=== PATIENT | male | born 1960 ===

== ENCOUNTER 2018-11-19 12:36 | Outpatient (CLI) | payer BC ==
--- NOTE | 2018-11-19 14:03 | RAD ---
TWO VIEW CHEST: HISTORY: Dyspnea. FINDINGS: The lungs appear clear. No infiltrate or vascular congestion. Heart size is normal. Metallic plate tr ansfixes the right clavicle. The thoracic vertebrae maintain height and alignment. Postoperative william nge at the cervical spine partially imaged. IMPRESSION: No acute process identified. POS: [facility]
== END 2018-11-19 12:37 | disposition home or self-care (01) ==
LOC: RAD 12:36
PROVIDERS: ATTEND Internal Medicine Pulmonary Disease
DX: R06.00 Dyspnea, unspecified (principal)
CPT/HCPCS: 71046